=== PATIENT | female | born 1950 | race Two or more races ===

== ENCOUNTER 2018-02-26 08:29 | Outpatient (CLI) | payer OTHER | END 2018-02-26 08:40 | disposition home or self-care (01) | LOC: LAB 08:29 | DX: E11.65 Type 2 diabetes mellitus with hyperglycemia (principal); N39.0 Urinary tract infection, site not specified; Z12.11 Encounter for screening for malignant neoplasm of colon; E78.2 Mixed hyperlipidemia; D64.89 Other specified anemias; E03.8 Other specified hypothyroidism ==

== ENCOUNTER → 2018-04-28 | Outpatient (CLI) | payer OTHER | END | disposition home or self-care (01) | LOC: LAB 09:01 | DX: M62.82 Rhabdomyolysis (principal); E11.65 Type 2 diabetes mellitus with hyperglycemia; E78.2 Mixed hyperlipidemia ==

== ENCOUNTER → 2018-07-31 09:05 | Outpatient (CLI) | payer OTHER | END | disposition home or self-care (01) | LOC: LAB 09:05 | DX: E11.65 Type 2 diabetes mellitus with hyperglycemia (principal); N39.0 Urinary tract infection, site not specified; E11.21 Type 2 diabetes mellitus with diabetic nephropathy; R82.79 Other abnormal findings on microbiological examination of urine; E78.2 Mixed hyperlipidemia; E03.8 Other specified hypothyroidism ==

== ENCOUNTER 2018-12-04 08:28 | Outpatient (CLI) | payer OTHER | END 2018-12-04 15:00 | disposition home or self-care (01) | LOC: LAB 08:28 | DX: E11.65 Type 2 diabetes mellitus with hyperglycemia (principal); E78.2 Mixed hyperlipidemia; N39.0 Urinary tract infection, site not specified; E03.8 Other specified hypothyroidism; Z12.11 Encounter for screening for malignant neoplasm of colon; B99.8 Other infectious disease ==

== ENCOUNTER 2019-02-05 10:19 | Outpatient (CLI) | payer OTHER | END 2019-02-05 10:29 | disposition home or self-care (01) | LOC: MAMO-SONO 10:19 | DX: Z12.31 Encounter for screening mammogram for malignant neoplasm of breast (principal); Z87.898 Personal history of other specified conditions; N60.11 Diffuse cystic mastopathy of right breast ==

== ENCOUNTER 2019-03-30 08:41 | Outpatient (CLI) | payer OTHER | END 2019-03-30 08:46 | disposition home or self-care (01) | LOC: LAB 08:41 | DX: E03.8 Other specified hypothyroidism (principal); Z12.11 Encounter for screening for malignant neoplasm of colon; E11.21 Type 2 diabetes mellitus with diabetic nephropathy; N39.0 Urinary tract infection, site not specified; D64.89 Other specified anemias; E11.65 Type 2 diabetes mellitus with hyperglycemia; E78.2 Mixed hyperlipidemia ==

== ENCOUNTER 2019-07-02 07:51 | Outpatient (CLI) | payer OTHER | END 2019-07-02 08:33 | disposition home or self-care (01) | LOC: LAB 07:51 | DX: Z12.11 Encounter for screening for malignant neoplasm of colon (principal); E11.65 Type 2 diabetes mellitus with hyperglycemia; E11.21 Type 2 diabetes mellitus with diabetic nephropathy; N39.0 Urinary tract infection, site not specified; R82.79 Other abnormal findings on microbiological examination of urine; D64.89 Other specified anemias ==

== ENCOUNTER 2019-07-15 09:45 | Outpatient (CLI) | payer OTHER | END 2019-07-15 17:00 | disposition home or self-care (01) | LOC: TOM 09:45 | DX: M54.32 Sciatica, left side (principal) ==

== ENCOUNTER → 2020-04-05 08:06 | Outpatient (CLI) | payer OTHER | END | disposition home or self-care (01) | LOC: LAB 08:06 | PROVIDERS: ATTEND Specialist | DX: D68.8 Other specified coagulation defects (principal); D64.89 Other specified anemias; E11.21 Type 2 diabetes mellitus with diabetic nephropathy; E11.69 Type 2 diabetes mellitus with other specified complication; E78.2 Mixed hyperlipidemia ==

== ENCOUNTER 2020-04-07 11:17 | Outpatient (CLI) | payer OTHER | END 2020-04-07 11:22 | disposition home or self-care (01) | LOC: LAB 11:17 | PROVIDERS: ATTEND Specialist | DX: D68.8 Other specified coagulation defects (principal); E11.21 Type 2 diabetes mellitus with diabetic nephropathy; E78.2 Mixed hyperlipidemia; D64.89 Other specified anemias ==

== ENCOUNTER 2020-07-14 08:49 | Outpatient (CLI) | payer OTHER | END 2020-07-14 09:08 | disposition home or self-care (01) | LOC: LAB 08:49 | PROVIDERS: ATTEND Specialist | DX: D64.89 Other specified anemias (principal); E72.11 Homocystinuria; D51.0 Vitamin B12 deficiency anemia due to intrinsic factor deficiency; E11.65 Type 2 diabetes mellitus with hyperglycemia ==

== ENCOUNTER 2020-07-21 09:47 | Outpatient (CLI) | payer OTHER | END 2020-07-21 10:03 | disposition home or self-care (01) | LOC: MAMO-SONO 09:47 | PROVIDERS: ATTEND Obstetrics & Gynecology | DX: Z12.31 Encounter for screening mammogram for malignant neoplasm of breast (principal); N60.11 Diffuse cystic mastopathy of right breast ==

== ENCOUNTER → 2021-01-24 09:29 | Outpatient (CLI) | payer OTHER | END | disposition home or self-care (01) | LOC: LAB 09:29 | PROVIDERS: ATTEND Specialist | DX: E78.2 Mixed hyperlipidemia (principal); D64.89 Other specified anemias; E11.65 Type 2 diabetes mellitus with hyperglycemia ==

== ENCOUNTER 2021-07-27 09:41 | Outpatient (CLI) | payer OTHER | END 2021-07-27 09:47 | disposition home or self-care (01) | LOC: LAB 09:41 | PROVIDERS: ATTEND Specialist | DX: E03.8 Other specified hypothyroidism (principal); E78.2 Mixed hyperlipidemia; E55.9 Vitamin D deficiency, unspecified; N39.0 Urinary tract infection, site not specified; Z12.11 Encounter for screening for malignant neoplasm of colon ==

== ENCOUNTER 2021-11-02 10:13 | Outpatient (CLI) | payer OTHER | END 2021-11-02 10:18 | disposition home or self-care (01) | LOC: LAB 10:13 | PROVIDERS: ATTEND Specialist | DX: N39.8 Other specified disorders of urinary system (principal); E11.21 Type 2 diabetes mellitus with diabetic nephropathy ==

== ENCOUNTER 2021-11-15 11:56 | Outpatient (CLI) | payer OTHER | END 2021-11-15 12:25 | disposition home or self-care (01) | LOC: MAMO-SONO 11:56 | PROVIDERS: ATTEND Obstetrics & Gynecology | DX: N60.11 Diffuse cystic mastopathy of right breast (principal) ==

== ENCOUNTER 2022-02-26 08:40 | Outpatient (CLI) | payer OTHER | END 2022-02-26 08:48 | disposition home or self-care (01) | LOC: LAB 08:40 | PROVIDERS: ATTEND Specialist | DX: E03.9 Hypothyroidism, unspecified (principal); E11.21 Type 2 diabetes mellitus with diabetic nephropathy; J45.998 Other asthma; M32.10 Systemic lupus erythematosus, organ or system involvement unspecified; N25.81 Secondary hyperparathyroidism of renal origin; M05.80 Other rheumatoid arthritis with rheumatoid factor of unspecified site; M05.9 Rheumatoid arthritis with rheumatoid factor, unspecified ==

== ENCOUNTER 2022-08-01 10:07 | Outpatient (CLI) | payer OTHER | END 2022-08-01 15:35 | disposition home or self-care (01) | LOC: LAB 10:07 | PROVIDERS: ATTEND Specialist | DX: E11.69 Type 2 diabetes mellitus with other specified complication (principal); E03.8 Other specified hypothyroidism; Z13.220 Encounter for screening for lipoid disorders; E11.21 Type 2 diabetes mellitus with diabetic nephropathy; R19.5 Other fecal abnormalities; N39.9 Disorder of urinary system, unspecified; D64.89 Other specified anemias ==

== ENCOUNTER 2022-10-25 09:30 | Outpatient (CLI) | payer OTHER | END 2022-10-25 09:31 | disposition home or self-care (01) | LOC: LAB 09:30 | PROVIDERS: ATTEND Specialist | DX: E11.21 Type 2 diabetes mellitus with diabetic nephropathy (principal) ==

== ENCOUNTER 2022-10-27 10:44 | Outpatient (CLI) | payer OTHER | END 2022-10-27 10:45 | disposition home or self-care (01) | LOC: LAB 10:44 | PROVIDERS: ATTEND Specialist | DX: E11.21 Type 2 diabetes mellitus with diabetic nephropathy (principal) ==

== ENCOUNTER 2022-12-06 07:44 | Outpatient (CLI) | payer OTHER | END 2022-12-06 07:45 | disposition home or self-care (01) | LOC: LAB 07:44 | PROVIDERS: ATTEND Specialist | DX: E03.8 Other specified hypothyroidism (principal); D64.89 Other specified anemias; N25.81 Secondary hyperparathyroidism of renal origin; Z13.220 Encounter for screening for lipoid disorders; R07.89 Other chest pain; E11.69 Type 2 diabetes mellitus with other specified complication; E11.21 Type 2 diabetes mellitus with diabetic nephropathy; R19.5 Other fecal abnormalities; N39.9 Disorder of urinary system, unspecified; I70.0 Atherosclerosis of aorta ==

== ENCOUNTER 2022-12-10 11:30 | Outpatient (CLI) | payer OTHER | END 2022-12-10 11:41 | disposition home or self-care (01) | LOC: MAMO-SONO 11:30 | PROVIDERS: ATTEND Obstetrics & Gynecology | DX: N60.11 Diffuse cystic mastopathy of right breast (principal) ==

== ENCOUNTER 2023-02-12 08:53 | Outpatient (CLI) | payer OTHER | END 2023-02-12 08:58 | disposition home or self-care (01) | LOC: LAB 08:53 | PROVIDERS: ATTEND Specialist | DX: Z13.220 Encounter for screening for lipoid disorders (principal); E03.8 Other specified hypothyroidism; E11.21 Type 2 diabetes mellitus with diabetic nephropathy; N25.81 Secondary hyperparathyroidism of renal origin; R07.89 Other chest pain; E11.69 Type 2 diabetes mellitus with other specified complication; M00.80 Arthritis due to other bacteria, unspecified joint; D64.89 Other specified anemias; N39.9 Disorder of urinary system, unspecified ==

== ENCOUNTER 2023-02-25 09:14 | Outpatient (CLI) | payer OTHER | END 2023-02-25 09:15 | disposition home or self-care (01) | LOC: LAB 09:14 | PROVIDERS: ATTEND Specialist | DX: D64.9 Anemia, unspecified (principal); E11.65 Type 2 diabetes mellitus with hyperglycemia; D68.8 Other specified coagulation defects; M32.10 Systemic lupus erythematosus, organ or system involvement unspecified; N39.0 Urinary tract infection, site not specified; D51.0 Vitamin B12 deficiency anemia due to intrinsic factor deficiency ==

== ENCOUNTER → 2023-11-04 08:26 | Outpatient (CLI) | payer OTHER ==
[2023-11-04 09:24] LABS: HEMATOCRIT 39.5 % (36.0-45.00); HEMOGLOBIN 13.6 g/dL (12.0-15.00); MEAN CELL VOLUME 101.5 fL (80.00-100.00); MEAN CORPUSCULAR HEMOGLOBIN 34.9 pg (27.00-32.0); MEAN CORPUSCULAR HGB CONC 34.4 g/dl (32.0-36.0); PLATELET COUNT 164 K/uL (150-450); RED CELL DISTRIBUTION WIDTH 12.9 % (11.5-14.5)
[2023-11-04 09:39] LABS: PH,URINE 5.5 (5.0-8.0); URINE APPEARANCE Cloudy; URINE BACTERIA 265.8 uL (0.0-1933); URINE BILIRRUBIN Negative (NEGATIVE); URINE BLOOD Negative; URINE COLOR Dark Yellow; URINE EPITHELIAL CELLS 39.2 uL (0.0-38.8); URINE GLUCOSE Negative (NEGATIVE); URINE LEUKOCYTE Negative; URINE NITRATE Negative; URINE PROTEIN 30 (NEGATIVE); URINE RBC 15.5 uL (0.0-20.8); URINE WBC 20.5 uL (0.0-23.2)
[2023-11-04 09:53] LABS: CHOL HDL RATIO 2.6 (0-5.0); FREE TRIODOTIRONINE 2.18 pg/ml (2.18-3.98); T4 FREE 1.08 NG/ML (0.76-1.46); TSH 1.25 uIU/mL (0.358-3.74)
[2023-11-04 10:48] LABS: URINE MUCUS MODERATE
== END | disposition home or self-care (01) ==
LOC: LAB 08:26
PROVIDERS: ATTEND Specialist
DX: D64.89 Other specified anemias (principal); N39.9 Disorder of urinary system, unspecified; E03.8 Other specified hypothyroidism; N25.81 Secondary hyperparathyroidism of renal origin; E11.21 Type 2 diabetes mellitus with diabetic nephropathy; E55.9 Vitamin D deficiency, unspecified; E11.69 Type 2 diabetes mellitus with other specified complication; R19.5 Other fecal abnormalities; Z13.220 Encounter for screening for lipoid disorders

== ENCOUNTER → 2023-11-06 11:56 | Outpatient (CLI) | payer OTHER ==
[2023-11-06 13:08] LABS: ob POSITIVE (NEGATIVE)
== END | disposition home or self-care (01) ==
LOC: LAB 11:56
PROVIDERS: ATTEND Specialist
DX: D64.89 Other specified anemias (principal); N39.9 Disorder of urinary system, unspecified; E03.8 Other specified hypothyroidism; N25.81 Secondary hyperparathyroidism of renal origin; E11.21 Type 2 diabetes mellitus with diabetic nephropathy; E55.9 Vitamin D deficiency, unspecified

== ENCOUNTER 2024-06-18 07:32 | Outpatient (CLI) | payer OTHER ==
[2024-06-18 08:21] LABS: HEMATOCRIT 37.3 % (36.0-45.00); HEMOGLOBIN 13.3 g/dL (12.0-15.00); MEAN CELL VOLUME 99.4 fL (80.00-100.00); MEAN CORPUSCULAR HEMOGLOBIN 35.4 pg (27.00-32.0); MEAN CORPUSCULAR HGB CONC 35.6 g/dl (32.0-36.0); PLATELET COUNT 191 K/uL (150-450); RED BLOOD COUNT 3.75 M/uL (4.00-6.00); RED CELL DISTRIBUTION WIDTH 13.2 % (11.5-14.5)
[2024-06-18 08:40] LABS: URINE BACTERIA 117.1 uL (0.0-1933); URINE EPITHELIAL CELLS 9.2 uL (0.0-38.8); URINE RBC 2.9 uL (0.0-20.8); URINE WBC 13.2 uL (0.0-23.2)
[2024-06-18 08:51] LABS: URINE BILIRRUBIN NEGATIVE (NEGATIVE); URINE BLOOD NEGATIVE; URINE KETONE NEGATIVE (NEGATIVE); URINE LEUKOCYTE NEGATIVE; URINE NITRATE NEGATIVE; URINE PROTEIN NEGATIVE (NEGATIVE); URINE UROBILINOGEN 0.2 E.U./dl
[2024-06-18 08:53] LABS: URINE APPEARANCE CLEAR; URINE COLOR YELLOW; URINE GLUCOSE >=1000 MG/DL (NEGATIVE)
[2024-06-18 09:04] LABS: URINE CAST 0.15 uL (0.0-1.40)
[2024-06-18 09:31] LABS: ALBUMIN 3.7 gm/dL (3.4-5.0); BILIRUBIN TOTAL 0.81 mg/dL (0.3-1.2); CALCIUM 9.1 mg/dL (8.5-10.1); CHOL HDL RATIO 3.1 (0-5.0); CREATININE SERUM 0.89 mg/dL (0.55-1.02); FREE TRIODOTIRONINE 2.49 pg/ml (2.18-3.98); GLOBULINA 3.8 G/DL (2.4-3.5); POTASSIUM 4.06 mEq/L (3.5-5.1); T4 FREE 0.99 NG/ML (0.76-1.46); TOTAL PROTEIN 7.5 gm/dL (6.4-8.2); TSH 1.95 uIU/mL (0.358-3.74)
[2024-06-18 09:33] LABS: C-REACTIVE PROTEIN 0.31 MG/DL (0.00-0.29)
== END 2024-06-18 07:40 | disposition home or self-care (01) ==
LOC: LAB 07:32
PROVIDERS: ATTEND Specialist
DX: E03.8 Other specified hypothyroidism (principal); D64.89 Other specified anemias; Z13.220 Encounter for screening for lipoid disorders; N39.9 Disorder of urinary system, unspecified; M00.80 Arthritis due to other bacteria, unspecified joint; E11.21 Type 2 diabetes mellitus with diabetic nephropathy; E11.69 Type 2 diabetes mellitus with other specified complication; N25.81 Secondary hyperparathyroidism of renal origin

== ENCOUNTER 2024-10-28 08:12 | Outpatient (CLI) | payer OTHER ==
[2024-10-28 08:52] LABS: HEMOGLOBIN 13.8 g/dL (12.0-15.00); MEAN CELL VOLUME 98.4 fL (80.00-100.00); MEAN CORPUSCULAR HEMOGLOBIN 33.9 pg (27.00-32.0); MEAN CORPUSCULAR HGB CONC 34.5 g/dl (32.0-36.0); PLATELET COUNT 169 K/uL (150-450); RED BLOOD COUNT 4.06 M/uL (4.00-6.00); RED CELL DISTRIBUTION WIDTH 13.4 % (11.5-14.5)
[2024-10-28 09:07] LABS: URINE APPEARANCE Clear; URINE BILIRRUBIN Negative (NEGATIVE); URINE BLOOD Negative; URINE COLOR Yellow; URINE KETONE Negative (NEGATIVE); URINE LEUKOCYTE Trace; URINE NITRATE Negative; URINE PROTEIN Negative (NEGATIVE); URINE UROBILINOGEN 0.2 E.U./dl
[2024-10-28 09:20] LABS: URINE BACTERIA 252.1 uL (0.0-1933); URINE EPITHELIAL CELLS 13.6 uL (0.0-38.8); URINE RBC 3.2 uL (0.0-20.8); URINE WBC 41.6 uL (0.0-23.2)
[2024-10-28 09:24] LABS: URINE CAST 0.88 uL (0.0-1.40); URINE GLUCOSE >=1000 MG/DL (NEGATIVE)
[2024-10-28 09:50] LABS: ALBUMIN 3.5 gm/dL (3.4-5.0); ALKALINE PHOSPHATASE 83 U/L (50-136); ALT/SGPT 14 U/L (12-78); ANION GAP 8 (10.0-20.0); AST/SGOT 13 U/L (15-37); BILIRUBIN TOTAL 0.75 mg/dL (0.3-1.2); BLOOD UREA NITROGEN 17 mg/dL (7-18); BUN CREA RATIO 20 (7.0-25.0); CALCIUM 9.1 mg/dL (8.5-10.1); CARBON DIOXIDE 32 mEq/L (21-32); CHLORIDE 106 mmol/L (98-107); CHOL HDL RATIO 2.9 (0-5.0); CHOLESTEROL 147 mg/dL (0-200); CREATININE SERUM 0.83 mg/dL (0.55-1.02); GFR 67.02; GLOBULINA 3.7 G/DL (2.4-3.5); GLUCOSE FASTING 113 mg/dL (65-100); HDL 50 mg/dl (40-60); LDL 61 mg/dl (0-130); OSMOLALITY SERUM 285 MOSM/KG (275-295); POTASSIUM 4.49 mEq/L (3.5-5.1); SODIUM 142 mmol/L (136-145); TOTAL PROTEIN 7.2 gm/dL (6.4-8.2); TRIGLYCERIDES 178 mg/dL (0-150); VLDL 35 (0-39)
[2024-10-28 09:52] LABS: C-REACTIVE PROTEIN < 0.29 MG/DL (0.00-0.29)
== END 2024-10-28 08:14 | disposition home or self-care (01) ==
LOC: LAB 08:12
PROVIDERS: ATTEND Specialist
DX: E11.21 Type 2 diabetes mellitus with diabetic nephropathy (principal); N39.9 Disorder of urinary system, unspecified; E78.2 Mixed hyperlipidemia; E11.65 Type 2 diabetes mellitus with hyperglycemia; D64.9 Anemia, unspecified; J45.998 Other asthma; N39.0 Urinary tract infection, site not specified

== ENCOUNTER 2025-02-13 08:54 | Outpatient (CLI) | payer OTHER ==
[2025-02-13 11:09] LABS: BASO % 0.4 % (0.1-1.2); EOS # 0.12 (0.04-0.54); EOS % 1.1 % (0.7-7.0); HEMATOCRIT 41.7 % (34.1-44.9); HEMOGLOBIN 14.3 g/dL (11.2-15.7); LYMPH # 2.07 (1.18-3.74); LYMPH % 19.7 % (19.3-53.1); MEAN CORPUSCULAR HEMOGLOBIN 33.6 pg (25.6-32.2); MONO # 0.74 (0.24-0.82); NEUT % 71.4 % (34.0-71.1); PLATELET COUNT 189 K/uL (163-369); RED BLOOD COUNT 4.26 M/uL (3.93-5.22); RED CELL DISTRIBUTION WIDTH 12.7 % (11.6-14.4)
[2025-02-13 11:33] LABS: URINE APPEARANCE Clear; URINE BILIRRUBIN Negative (NEGATIVE); URINE BLOOD Negative; URINE COLOR Yellow; URINE KETONE Negative (NEGATIVE); URINE LEUKOCYTE Negative; URINE NITRATE Negative; URINE PROTEIN Negative (NEGATIVE); URINE UROBILINOGEN 0.2 E.U./dl
[2025-02-13 11:38] LABS: URINE EPITHELIAL CELLS 6.6 uL (0.0-38.8); URINE WBC 4.4 uL (0.0-23.2)
[2025-02-13 11:49] LABS: ALBUMIN 3.8 gm/dL (3.4-5.0); BILIRUBIN TOTAL 0.84 mg/dL (0.3-1.2); CALCIUM 8.8 mg/dL (8.5-10.1); CHOL HDL RATIO 3.3 (0-5.0); CREATININE SERUM 0.78 mg/dL (0.55-1.02); FREE TRIODOTIRONINE 2.52 pg/ml (2.18-3.98); POTASSIUM 4.37 mEq/L (3.5-5.1); T4 FREE 0.95 NG/ML (0.76-1.46); TOTAL PROTEIN 7.8 gm/dL (6.4-8.2); TSH 1.95 uIU/mL (0.358-3.74)
[2025-02-13 11:57] LABS: URINE GLUCOSE >=1000 MG/DL (NEGATIVE)
[2025-02-13 12:08] LABS: CREATININE URINE RANDOM 98.8 MG/DL (30-125)
== END 2025-02-13 09:00 | disposition home or self-care (01) ==
LOC: LAB 08:54
PROVIDERS: ATTEND Specialist
DX: E03.9 Hypothyroidism, unspecified (principal); E11.21 Type 2 diabetes mellitus with diabetic nephropathy; N39.0 Urinary tract infection, site not specified; E78.2 Mixed hyperlipidemia; E11.65 Type 2 diabetes mellitus with hyperglycemia; D64.9 Anemia, unspecified; E55.9 Vitamin D deficiency, unspecified

== ENCOUNTER 2025-03-30 12:16 | Outpatient (CLI) | payer OTHER | END 2025-03-30 12:27 | disposition home or self-care (01) | LOC: MAMO-SONO 12:16 | PROVIDERS: ATTEND Obstetrics & Gynecology | DX: N60.11 Diffuse cystic mastopathy of right breast (principal); Z12.31 Encounter for screening mammogram for malignant neoplasm of breast ==

== ENCOUNTER 2025-06-16 08:24 | Outpatient (CLI) | payer OTHER ==
[2025-06-16 09:07] LABS: BASO % 0.4 % (0.1-1.2); EOS # 0.14 (0.04-0.54); EOS % 1.4 % (0.7-7.0); LYMPH # 2.23 (1.18-3.74); LYMPH % 21.8 % (19.3-53.1); MEAN PLATELET VOLUME 9.40 fl (9.4-12.4); MONO # 0.84 (0.24-0.82); MONO % 8.2 % (4.7-12.5); NEUT # 6.94 (1.56-6.13); NEUT % 68.0 % (34.0-71.1); RED CELL DISTRIBUTION WIDTH 12.3 % (11.6-14.4)
[2025-06-16 09:28] LABS: URINE APPEARANCE Clear; URINE BILIRRUBIN Negative (NEGATIVE); URINE BLOOD Negative; URINE COLOR Yellow; URINE KETONE Negative (NEGATIVE); URINE LEUKOCYTE Negative; URINE NITRATE Negative; URINE PROTEIN Negative (NEGATIVE); URINE UROBILINOGEN 0.2 E.U./dl
[2025-06-16 09:29] LABS: URINE BACTERIA 21.5 uL (0.0-1933); URINE EPITHELIAL CELLS 9.6 uL (0.0-38.8); URINE RBC 2.6 uL (0.0-20.8); URINE WBC 9.8 uL (0.0-23.2)
[2025-06-16 09:40] LABS: URINE CAST 0.14 uL (0.0-1.40); URINE GLUCOSE >=1000 MG/DL (NEGATIVE)
[2025-06-16 10:53] LABS: ALT/SGPT 17.0 U/L (12-78); AST/SGOT 16.0 U/L (15-37); BILIRUBIN TOTAL 0.86 mg/dL (0.3-1.2); BILIRUBIN,CONJUGATED 0.23 mg/dL (0.0-0.2); BUN CREA RATIO 24.0 (7.0-25.0); CHOL HDL RATIO 2.8 (0-5.0); CREATININE SERUM 0.83 mg/dL (0.55-1.02); FREE TRIODOTIRONINE 2.64 pg/ml (2.18-3.98); GFR 67.02; GLUCOSE FASTING 106.0 mg/dL (65-100); HDL 58.0 mg/dl (40-60); LDL 67.0 mg/dl (0-130); OSMOLALITY SERUM 282.0 MOSM/KG (275-295); T4 FREE 0.95 NG/ML (0.76-1.46); TSH 2.26 uIU/mL (0.358-3.74); VLDL 40.0 (0-39)
== END 2025-06-16 08:25 | disposition home or self-care (01) ==
LOC: LAB 08:24
PROVIDERS: ATTEND Specialist
DX: E03.9 Hypothyroidism, unspecified (principal); N39.9 Disorder of urinary system, unspecified; D64.9 Anemia, unspecified; E78.2 Mixed hyperlipidemia; K75.81 Nonalcoholic steatohepatitis (NASH); N39.0 Urinary tract infection, site not specified